=== PATIENT | female | born 1970 | race Caucasian/White ===

== ENCOUNTER 2018-07-28 10:01 | Emergency (ER) | payer MEDICAID ==
[2018-07-28 10:29] LABS: URINE PH (Dip) POC 5.5 (5.0-8.5)
[2018-07-28 10:29] LABS: URINE BLOOD (Dip) POC 3+ (NEGATIVE); URINE KETONES (Dip) POC Negative (NEGATIVE); URINE LEUKOCYTE EST (Dip) POC Negative (NEGATIVE); URINE NITRITE (Dip) POC Negative (NEGATIVE); URINE TOTAL PROTEIN POC 1+ (NEGATIVE)
[2018-07-28] MEDS: KETOROLAC 30 MG INJ IM (10:40)
== END 2018-07-28 11:07 | disposition home or self-care (01) ==
LOC: FTE 10:01
DX: M54.42 Lumbago with sciatica, left side (principal); E11.9 Type 2 diabetes mellitus without complications; Z79.4 Long term (current) use of insulin
CPT/HCPCS: 81003; 81025; 96372; 99284-25